=== PATIENT | male | born 1965 | race Caucasian/White ===

== ENCOUNTER 2025-08-25 10:58 | Emergency (ER) | payer OTHER ==
[~2025-08-25] VITALS: Ht 177.8 cm; Wt 111.6 kg
[~2025-08-25 10:58] MED LIST: ALLO100; ATOR20; CEPH500 PO; FAMO20; MIRT15ST; Norco 5-325 Ta1 EACH PO; VENL37.5; Vitamin D1000 UNI1
[2025-08-25] MEDS ORDERED: Ketorolac Tromethamine 30mg Vial IM ONE (11:25)
== END 2025-08-25 14:17 | disposition left against medical advice (07) ==
LOC: ER 10:58
DX: M25.511 Pain in right shoulder (principal); M25.521 Pain in right elbow; M25.551 Pain in right hip; Z91.81 History of falling; Z53.29 Procedure and treatment not carried out because of patient's decision for other reasons; Z79.899 Other long term (current) drug therapy
CPT/HCPCS: 73030; 73080; A9270